=== PATIENT | male | born 1940 | race African-American/Black ===

== ENCOUNTER 2017-06-28 16:27 | Emergency (ER) | payer MEDICARE, MEDICAID ==
[~2017-06-28] VITALS: Ht 152.4 cm; Wt 114.0 kg
[~2017-06-28 16:27] MED LIST: (None)3.5 GM OP; ACTOS15 MG OR; AMOXICILLIN500 MG OR; AMOXIL500 MG OR; ATRIPLA OR; ATRIPLA PO; AUGMENTIN875 MG PO; AVODART0.5 MG OR; AZOR; AZOR OR; AZOR1 TA1 PO; AZOR1 TA2 OR; AZOR1 TAB PO; BACITRACIN1 GM EX; BACTRIM DS1 TAB PO; BACTRIM1 TAB OR; BENADRYL25 MG OR; BETIMOL0.5 % OU; CIPRO XR500 M1 OR; CIPRO XR500 MG PO; CIPROFLOXACIN250 MG PO; COREG CR20 MG OR; COREG6.25 MG OR; COREG6.25 MG PO; DARVOCET N-100100 - OR; DIABETA5 MG OR; DILAUDID 2MG2 MG/TAB PO; DILAUDID2 MG PO; DOXYCYC MONO100 MG OR; DOXYCYCL HYC100 MG PO; FAMVIR500 MG PO; FLAGYL500 MG PO; GENTAMICIN SULF5 ML OP; GLUCOVANC1 OR; GLYBURIDE5 M1 PO; GLYBURIDE5 MG OR; GLYBURIDE5 MG PO; HYDROCHLOROT25 MG PO; K-TABS10 MEQ OR; LASIX 20 MG TAB20 MG PO; LASIX 40 MG40 MG/TAB PO; LASIX40 MG OR; LEVAQUIN500 MG PO; LORTAB 5 OR; MACRODANTIN100 MG PO; MICRONASE5 MG PO; MILK OF MAG30 ML/UDC PO; NAPROSYN500 MG PO; PENICILLN VK500 MG OR; PERCOCET 5/325M1 TAB PO; POT CHLORIDE8 ME1 OR; POTASSIUM75 MG OR; PRED FORTE1 % OU; PREVACID30 M2 PO; PYRIDIUM200 MG OR; ROBITUSS20 OR; SPIRONOLACT25 MG PO; TIVICAY50 MG PO; TORADOL OR; TRAMADOL HCL50 MG OR; TRUVADA PO; ULTRAM50 M1 PO; VICODIN ES1 TAB OR; VICODIN ES1 TAB PO; VICODIN1 TAB; VICODIN1 TAB OR; VITAMIN D2 PO; ZITHROMAX250 MG OR; ZITHROMAX250 MG PO; ZOFRAN ODT4 MG PO; ZPAK OR; [UNRECOGNIZED DRUG - OTHER] PO; robitussin ac OR
[2017-06-28 17:21] LABS: HEMATOCRIT 34.9 % (39.0-50.0); HEMOGLOBIN 11.8 g/dl (14.0-18.0); IMMATURE GRANULOCYTES 0.2 % (0.0-1.0); MEAN CELL VOLUME 102.3 fL CALC (80.0-100.0); MEAN CORPUSCULAR HGB 34.6 pG CALC (26.0-32.0); MEAN CORPUSCULAR HGB CONC 33.8 g/L CALC (32.0-36.0); NEUT# 3.23 thou/uL (1.82-7.42); RED BLOOD COUNT 3.41 mill/uL (4.70-6.10); RED CELL DISTRI WIDTH 13.3 % (11.5-15.5)
[2017-06-28 17:33] LABS: ALBUMIN 3.5 g/dL (3.2-5.0); ALKALINE PHOSPHATASE 91 u/l (38-126); ANION GAP 17 (6-22 (CALC)); BILIRUBIN, TOTAL 0.6 mg/dL (0.0-1.4); BUN 24 mg/dL (8-23); BUN/CREATININE RATIO 10 (12-20 (CALC)); CARBON DIOXIDE 27 mmol/l (22-30); CHLORIDE 98 mmol/l (95-108); CREATININE 2.4 mg/dL (0.7-1.3); GFR 26 ML/MIN (>=60 (CALC)); GFR FOR AFR.AMER. 32 ML/MIN (>=60 (CALC)); LIPASE 44 u/l (23-300); POTASSIUM 3.8 mmol/l (3.5-5.1); SGOT/AST 12 u/l (19-48); SGPT/ALT 23 u/l (11-66); SODIUM 137 mmol/l (137-146); TOTAL PROTEIN 6.7 g/dL (6.3-8.2)
[2017-06-28] MEDS ORDERED: CLONIDINE0.1 MG PO (17:36)
[2017-06-28] MEDS ORDERED: GLIPIZIDE5 MG PO (17:38)
[2017-06-28] MEDS ORDERED: FUROSEMIDE40 MG PO (17:38)
[2017-06-28] MEDS ORDERED: DOCUSATE CAL240 MG PO (17:38)
[2017-06-28] MEDS ORDERED: LOSARTAN POTASS50 MG PO (17:39)
[2017-06-28] MEDS ORDERED: LABETALOL100 MG PO (17:39)
[2017-06-28] MEDS ORDERED: MUPIROCIN2 % EX (17:40)
[2017-06-28] MEDS ORDERED: MINIPRESS1 MG PO (17:41)
[2017-06-28] MEDS ORDERED: ZEMPLAR2 MCG PO (17:41)
[2017-06-28] MEDS ORDERED: SANTYL250 UNIT/G TOP (17:42)
[2017-06-28] MEDS ORDERED: TIMOLOL MAL0.5 % OU (17:43)
[2017-06-28] MEDS ORDERED: TIVICAY50 MG PO (17:43)
[2017-06-28] MEDS ORDERED: TRAMADOL HCL50 MG PO (17:43)
[2017-06-28 18:54] LABS: URINE BILIRUBIN - DIPSTICK NEGATIVE (NEGATIVE); URINE BLOOD DIPSTICK NEGATIVE (NEGATIVE); URINE COLOR YELLOW; URINE GLUCOSE - DIPSTICK 250 mg/dL (NEGATIVE); URINE KETONE NEGATIVE (NEGATIVE); URINE LEUK ESTERASE NEGATIVE (NEGATIVE); URINE NITRITE - DIPSTICK NEGATIVE (Negative); URINE PH 5.5 (4.5-8.0); URINE PROTEIN - DIPSTICK 30 mg/dL (NEG-TRACE)
[2017-06-28 18:59] LABS: URINE CLARITY CLEAR
[2017-06-28 19:16] VITALS: BP 145/72
[2017-06-28 20:53] LABS: URINE MUCUS FEW hpf (NONE-FEW); URINE SQUAMOUS EPITHELIAL CELL FEW EPI/hpf (0-FEW)
== END 2017-06-28 19:24 | disposition designated cancer center or children's hospital (05) ==
LOC: ED 16:27
PROVIDERS: Family Medicine
DX: R10.13 Epigastric pain (principal); R10.11 Right upper quadrant pain; I10 Essential (primary) hypertension; E11.9 Type 2 diabetes mellitus without complications

== ENCOUNTER 2017-10-01 12:29 | Emergency (ER) | payer MEDICARE ==
[~2017-10-01] VITALS: Ht 152.4 cm; Wt 132.5 kg
[~2017-10-01 12:29] MED LIST changes: +CLONIDINE0.1 MG PO; +DOCUSATE CAL240 MG PO; +FUROSEMIDE40 MG PO; +GLIPIZIDE5 MG PO; +LABETALOL100 MG PO; +LOSARTAN POTASS50 MG PO; +MINIPRESS1 MG PO; +MUPIROCIN2 % EX; +SANTYL250 UNIT/G TOP; +TIMOLOL MAL0.5 % OU; +TRAMADOL HCL50 MG PO; +ZEMPLAR2 MCG PO
[2017-10-01 13:19] LABS: ALBUMIN 3.8 g/dL (3.2-5.0); BILIRUBIN, TOTAL 0.7 mg/dL (0.0-1.4); CREATININE 2.2 mg/dL (0.7-1.3); POTASSIUM 3.5 mmol/l (3.5-5.1); TOTAL PROTEIN 6.9 g/dL (6.3-8.2)
[2017-10-01 13:27] LABS: HEMATOCRIT 33.4 % (39.0-50.0); HEMOGLOBIN 11.5 g/dl (14.0-18.0); IMMATURE GRANULOCYTES 0.2 % (0.0-1.0); MEAN CORPUSCULAR HGB 35.8 pG CALC (26.0-32.0); MEAN CORPUSCULAR HGB CONC 34.4 g/L CALC (32.0-36.0); NEUT# 3.49 thou/uL (1.82-7.42); RED BLOOD COUNT 3.21 mill/uL (4.70-6.10); RED CELL DISTRI WIDTH 14.2 % (11.5-15.5)
[2017-10-01] MEDS ORDERED: BACTRIM DS1 TAB PO (14:37)
[2017-10-01] MEDS ORDERED: AUGMENTIN875TAB PO (14:37)
[2017-10-01 14:54] VITALS: BP 165/72
== END 2017-10-01 15:20 | disposition home or self-care (01) ==
LOC: ED 12:29
PROVIDERS: Emergency Medicine
DX: R60.0 Localized edema (principal); M79.605 Pain in left leg; I10 Essential (primary) hypertension; E11.9 Type 2 diabetes mellitus without complications

== ENCOUNTER 2017-11-18 09:36 | Emergency (ER) | payer MEDICARE, MEDICAID ==
[~2017-11-18] VITALS: Ht 152.4 cm; Wt 121.8 kg
[~2017-11-18 09:36] MED LIST changes: +AUGMENTIN875TAB PO
[2017-11-18 10:20] LABS: HEMATOCRIT 35.9 % (39.0-50.0); HEMOGLOBIN 12.4 g/dl (14.0-18.0); IMMATURE GRANULOCYTES 0.4 % (0.0-5.0); MEAN CELL VOLUME 103.5 fL CALC (80.0-100.0); MEAN CORPUSCULAR HGB 35.7 pG CALC (26.0-32.0); MEAN CORPUSCULAR HGB CONC 34.5 g/L CALC (32.0-36.0); NEUT# 3.32 thou/uL (1.82-7.42); RED BLOOD COUNT 3.47 mill/uL (4.70-6.10); RED CELL DISTRI WIDTH 13.6 % (11.5-15.5)
[2017-11-18] MEDS ORDERED: AMMONIUM LACTATE121 TOP (10:20)
[2017-11-18] MEDS ORDERED: FUROSEMIDE80 MG PO (10:21)
[2017-11-18 10:45] LABS: CREATININE 2.2 mg/dL (0.7-1.3); POTASSIUM 4.2 mmol/l (3.5-5.1)
[2017-11-18] MEDS ORDERED: TRAMADOL HYDROC50 MG PO (11:53)
[2017-11-18 11:58] VITALS: BP 181/75
== END 2017-11-18 12:14 | disposition home or self-care (01) ==
LOC: ED 09:36
PROVIDERS: Family Medicine
DX: S39.012A Strain of muscle, fascia and tendon of lower back, initial encounter (principal); I10 Essential (primary) hypertension; E11.9 Type 2 diabetes mellitus without complications; X58.XXXA Exposure to other specified factors, initial encounter

== ENCOUNTER 2018-10-20 17:37 | Emergency (ER) | payer MEDICARE ==
[~2018-10-20] VITALS: Ht 152.4 cm; Wt 120.0 kg
[~2018-10-20 17:37] MED LIST changes: +AMMONIUM LACTATE121 TOP; +FUROSEMIDE80 MG PO; +TRAMADOL HYDROC50 MG PO
[2018-10-20] MEDS ORDERED: GLIPIZIDE5 MG PO (17:56)
[2018-10-20] MEDS ORDERED: PARICALCITOL2 MCG PO (17:58)
[2018-10-20] MEDS ORDERED: PREZCOBIX 800-11 TAB PO (18:00)
[2018-10-20] MEDS ORDERED: HYDRALAZINE10 MG PO (18:04)
[2018-10-20 18:09] LABS: HEMATOCRIT 40.8 % (39.0-50.0); HEMOGLOBIN 13.7 g/dl (14.0-18.0); IMMATURE GRANULOCYTES 0.5 % (0.0-5.0); MEAN CELL VOLUME 106.3 fL CALC (80.0-100.0); MEAN CORPUSCULAR HGB 35.7 pG CALC (26.0-32.0); MEAN CORPUSCULAR HGB CONC 33.6 g/L CALC (32.0-36.0); NEUT# 10.47 thou/uL (1.82-7.42); RED BLOOD COUNT 3.84 mill/uL (4.70-6.10); RED CELL DISTRI WIDTH 13.8 % (11.5-15.5)
[2018-10-20 18:26] LABS: ALBUMIN 4.6 g/dL (3.2-5.0); BILIRUBIN, TOTAL 0.8 mg/dL (0.0-1.4); CREATININE 3.1 mg/dL (0.7-1.3); POTASSIUM 4.3 mmol/l (3.5-5.1); TOTAL PROTEIN 8.3 g/dL (6.3-8.2)
[2018-10-20 19:53] LABS: URINE BILIRUBIN - DIPSTICK NEGATIVE (NEGATIVE); URINE BLOOD DIPSTICK NEGATIVE (NEGATIVE); URINE COLOR YELLOW; URINE GLUCOSE - DIPSTICK NEGATIVE (NEGATIVE); URINE KETONE NEGATIVE (NEGATIVE); URINE LEUK ESTERASE NEGATIVE (NEGATIVE); URINE NITRITE - DIPSTICK NEGATIVE (Negative); URINE PROTEIN - DIPSTICK 30 mg/dL (NEG-TRACE); URINE SPECIFIC GRAVITY 1.025
[2018-10-20 19:55] LABS: URINE RBC 0-2 RBC/hpf (0-5); URINE WBC 0-2 WBC/hpf (0-5)
[2018-10-20] MEDS ORDERED: ZOFRAN4 MG/TAB PO (20:07)
[2018-10-20 20:30] VITALS: BP 172/77
--- NOTE | 2018-10-22 11:12 | NUR ---
Called pt due to blood cultures growing gram positive cocci in 4/4 bottles. Pt states he has not had fever, chills, or shaking since leaving the ED. Advised pt to return to ED as soon as possible regardless due to potential serious infection in bloodstream. Pt verbalized understanding. Stated he will try to come in today, however may return tomorrow morning. Again stressed importance of being evaluated by a physician as soon as possible.
[2018-10-26] MEDS ORDERED: LIDOCAINE 5%5 % (10:00)
[2018-10-26] MEDS ORDERED: TRAMADOL HCL50 MG PO (10:45)
== END 2018-10-20 20:30 | disposition home or self-care (01) ==
LOC: ED 17:37
PROVIDERS: Family Medicine
DX: K52.9 Noninfective gastroenteritis and colitis, unspecified (principal); E11.9 Type 2 diabetes mellitus without complications; I10 Essential (primary) hypertension; Z79.84 Long term (current) use of oral hypoglycemic drugs

== ENCOUNTER 2018-10-22 12:23 | Inpatient (IN) | payer MEDICARE ==
[~2018-10-22] VITALS: Ht 172.7 cm; Wt 123.2 kg
[~2018-10-22 12:23] MED LIST changes: +HYDRALAZINE10 MG PO; +PARICALCITOL2 MCG PO; +PREZCOBIX 800-11 TAB PO; +ZOFRAN4 MG/TAB PO
--- NOTE | 2018-10-22 12:41 | NUR ---
PATIENT TO ROOM VIA WHEELCHAIR. ASSISTED ONTO STRETCHER.
[2018-10-22 13:44] LABS: IMMATURE GRANULOCYTES 0.9 % (0.0-5.0); MEAN CELL VOLUME 105.6 fL CALC (80.0-100.0); MEAN CORPUSCULAR HGB 36.2 pG CALC (26.0-32.0); MEAN CORPUSCULAR HGB CONC 34.3 g/L CALC (32.0-36.0); NEUT# 14.19 thou/uL (1.82-7.42); RED BLOOD COUNT 3.23 mill/uL (4.70-6.10); RED CELL DISTRI WIDTH 13.9 % (11.5-15.5)
[2018-10-22 14:05] LABS: HEMATOCRIT 34.1 % (39.0-50.0); HEMOGLOBIN 11.7 g/dl (14.0-18.0)
[2018-10-22 14:09] LABS: BILIRUBIN, TOTAL 0.7 mg/dL (0.0-1.4); CREATININE 3.8 mg/dL (0.7-1.3); POTASSIUM 3.8 mmol/l (3.5-5.1)
--- NOTE | 2018-10-22 14:11 | NUR ---
PT RETURNS FROM U/S, UPDATED ON PLAN OF CARE AND FINDINGS. NAD.
[2018-10-22 14:14] LABS: ALBUMIN 3.5 g/dL (3.2-5.0)
[2018-10-22 14:15] LABS: URINE BILIRUBIN - DIPSTICK NEGATIVE (NEGATIVE); URINE BLOOD DIPSTICK NEGATIVE (NEGATIVE); URINE COLOR YELLOW; URINE GLUCOSE - DIPSTICK NEGATIVE (NEGATIVE); URINE KETONE NEGATIVE (NEGATIVE); URINE LEUK ESTERASE NEGATIVE (NEGATIVE); URINE NITRITE - DIPSTICK NEGATIVE (Negative); URINE PROTEIN - DIPSTICK NEGATIVE (NEG-TRACE)
[2018-10-22] MEDS ORDERED: ZEMPLAR2 MCG PO (14:43)
[2018-10-22] MEDS ORDERED: TRAMADOL HCL50 MG PO (14:47)
--- NOTE | 2018-10-22 15:55 | NUR ---
PT RECEIVED FROM E.R VIA STRETCHER ACCOMPANIED BY NURSE. ASSISTED INTO BED. GAIT STEADY. ALERT AND ORIENTED X4. RESP EVEN AND UNLABORED. LUNGS CLEAR BILAT. ABD SOFT WITH BOWEL SOUNDS PRESENT. SKIN INTACT. +3 EDEMA NOTED TO LEFT LOWER EXT. PEDAL PULSES PALPATED BILAT. LEFT LOWER EXT IS RED WITH NO DRAINAGE PRESENT. SKIN IS DRY. PICTURE TAKEN AND PLACED ON THE CHART. LEFT LOWER EXT ELEVATED ON A PILLOW. IV SITE PATENT IN LEFT FOREARM. PT ORIENTED TO ROOM AND CALL HERNANDEZ. PT OFFERS NO COMPLAINTS. CALL HERNANDEZ WITHIN REACH.
--- NOTE | 2018-10-22 16:03 | NUR ---
REPORT CALLED TO KAROL ALDRICH TAKEN TO ROOM 289 WITHOUT INCIDENT.
--- NOTE | 2018-10-22 16:10 | NUR ---
Vancomycin consult Age: 78 yo Serum creatinine: 3.8 mg/dL Height: 68.0 Inches Weight (kg): 123.18 IBW (kg): 68.40 Dosing wt(kg): 123.18 Estimated Creatinine clearance (ml/min): 15.5 Vd (liters): 86.2 (factor used: 0.7 L/kg) Jose Alberto (hr-1): 0.017 Half life (hrs): 40.77 Vancomycin 1750 mg q 48 hrs with an expected Cpeak of 36 mcg/ml and an expected Ctrough of 16 mcg/ml
[2018-10-22 16:15] VITALS: BP 103/54
--- NOTE | 2018-10-22 17:30 | NUR ---
ACCUCHECK 66. PT ASYMPTOMATIC AND EATING HIS DINNER TRAY. LEFT LOWER EXT IS ELEVATED ON A PILLOW. IV SITE PATENT NSS AT 100CC/HR. PT OFFERS NO COMPLAINTS. CALL HERNANDEZ WITHIN REACH.
--- NOTE | 2018-10-22 18:10 | NUR ---
RESTING IN BED WATCHING T.V. ASSESSMENT UNCHANGED. IV SITE PATENT. OFFERS NO COMPLAINTS. CALL HERNANDEZ WITHIN REACH.
--- NOTE | 2018-10-22 19:17 | NUR ---
REPORT RECEIVED FROM DAY NURSE, PT IS IN HIGH FOWLERS POSITION, VISITOR AT BEDSIDE X2. DENIES ANY NEEDS AT THIS TIME.
[2018-10-22 19:20] VITALS: BP 107/52
[2018-10-22 21:32] VITALS: BP 117/59
--- NOTE | 2018-10-22 21:55 | NUR ---
PT ASSESSED, LUNG SOUNDS ARE CLEAR, ABD SOFT NON-TENDER W/ACTIVE BOWEL SOUNDS. LLE REDDENED W/2+EDEMA. NEURO'S INTACT. PT DENIES ANY NEEDS AT THIS TIME. NO S/O DISTRESS NOTED. CALL LIGHT IS AT SIDE AND PT ENCOURAGED TO CALL NEEDS ARISE.
--- NOTE | 2018-10-23 02:09 | NUR ---
PT SLEEPING W/LIGHT ON. AWOKE TO MY ENTERING ROOM, ASKED FOR MOUTH MINT/OFFERED ICE CHIPS AND SWABS/DENIED. DENIED ANY OTHER NEEDS AT THIS TIME. DENIED PAIN. CALL LIGHT AT SIDE AND PT ENCOURAGED TO CALL NEEDS ARISE.
[2018-10-23 04:36] VITALS: BP 127/64
--- NOTE | 2018-10-23 05:46 | NUR ---
PT CALLED FOR ASSISTANCE PULLING BLANKETS ON HIMSELF. ASSISTANCE PROVIDED, DENIES ANY OTHER NEEDS. CPAP ON AT THIS TIME. NO S/O DISTRESS NOTED.
[2018-10-23 08:02] LABS: HEMATOCRIT 32.2 % (39.0-50.0); IMMATURE GRANULOCYTES 0.7 % (0.0-5.0); MEAN CELL VOLUME 105.2 fL CALC (80.0-100.0); MEAN CORPUSCULAR HGB 35.9 pG CALC (26.0-32.0); MEAN CORPUSCULAR HGB CONC 34.2 g/L CALC (32.0-36.0); NEUT# 9.52 thou/uL (1.82-7.42); RED BLOOD COUNT 3.06 mill/uL (4.70-6.10); RED CELL DISTRI WIDTH 14.4 % (11.5-15.5)
[2018-10-23 08:03] LABS: CREATININE 3.7 mg/dL (0.7-1.3)
[2018-10-23 08:15] VITALS: BP 147/67
--- NOTE | 2018-10-23 08:15 | NUR ---
Awake eating breakfast on side of bed, iv intact at 100cc/he to 2guage in left forearm, denies any discomforts or pain.
--- NOTE | 2018-10-23 11:55 | NUR ---
and TANIKA making rounds, awaiting orders.
[2018-10-23 15:20] VITALS: BP 152/67
--- NOTE | 2018-10-23 15:30 | NUR ---
May take some home meds per MD order, IV remains intact without redness or edema.
[2018-10-23 19:14] VITALS: BP 140/63
--- NOTE | 2018-10-23 22:10 | NUR ---
PT ON PHONE, ASKED ME TO RETURN LATER. WILL RETURN IN A FIEW MINUTES TO ADMINISTER MEDICATIONS ORDERED.
--- NOTE | 2018-10-23 22:44 | NUR ---
PT MEDICATED ORDERS PROVIDE AND W/HOME MEDICATIONS ORDERED IN MAY. LUNG SOUNDS ARE CLEAR/DIM. ABD DIST/SOFT NON-TENDER. PT REPORTS LAST STOOL TWO DAYS AGO NORMAL TIMING FOR HIM. REPORTS URINATING FREQUENTLY. BLE EDEMATOUS, RLE 1+EDEMA, LLE 2+EDEMA AND REDDENED. PT ASSISTED W/PO FLUIDS, DENIES ANY OTHER NEEDS, CALL LIGHT AND URINAL AT SIDE.
--- NOTE | 2018-10-24 02:00 | NUR ---
PT CALLED FOR ASSISTANCE USING URINAL AT BEDSIDE AND GETTING BACK INTO BED. PT APPEARS TO NOT NEED ASSISTANCE, BUT CALLS FOR STANDBY ASSISTANCE EACH TIME HE MOVES TO SIDE OF BED. NO S/O DISTRESS NOTED.
--- NOTE | 2018-10-24 02:52 | NUR ---
IV FLUIDS REPLENISHED AT THIS TIME. PT IS SITTING ON SIDE OF THE BED EATING APPLESAUCE. MEDICATIONS MEDICAL ISSUES DISCUSSED. HOUSEKEEPING IN ROOM AT THIS TIME. PT DENIES ANY OTHER NEEDS, CALL LIGHT W/IN REACH AND HE HAS BEEN ENCOURAGED TO CALL ANY NEEDS ARISE.
[2018-10-24 04:02] VITALS: BP 131/60
[2018-10-24 05:49] LABS: HEMATOCRIT 31.4 % (39.0-50.0); HEMOGLOBIN 10.3 g/dl (14.0-18.0); IMMATURE GRANULOCYTES 0.6 % (0.0-5.0); MEAN CELL VOLUME 107.5 fL CALC (80.0-100.0); MEAN CORPUSCULAR HGB 35.3 pG CALC (26.0-32.0); MEAN CORPUSCULAR HGB CONC 32.8 g/L CALC (32.0-36.0); NEUT# 5.95 thou/uL (1.82-7.42); RED BLOOD COUNT 2.92 mill/uL (4.70-6.10); RED CELL DISTRI WIDTH 14.3 % (11.5-15.5)
[2018-10-24 06:02] LABS: CREATININE 3.2 mg/dL (0.7-1.3); POTASSIUM 4.1 mmol/l (3.5-5.1)
--- NOTE | 2018-10-24 07:45 | NUR ---
PT AWAKE SITTING IN BED. RESP EVEN AND UNLABORED. LUNGS CLEAR BILAT. ABD SOFT AND NONDISTENDED WITH BOWEL SOUNDS PRESENT. PT HAS +2 LEFT LOWER EXT EDEMA NOTED. PEDAL PULSES PALPATED BILAT. LEFT LOWER EXT IS RED AND SKIN IS INTACT BUT DRY. IV SITE PATENT IN LEFT FOREARM NSS AT 100CC/HR. PT OFFERS NO COMPLAINTS. LEFT LOWER EXT IS ELEVATED ON A PILLOW. FREQUENT ROUNDS MADE. CALL HERNANDEZ WITHIN REACH.
[2018-10-24 07:58] VITALS: BP 160/75
[2018-10-24 09:44] VITALS: BP 160/75
--- NOTE | 2018-10-24 10:20 | NUR ---
SITTING AT EDGE OF THE BED. IV SITE PATENT. RESP EVEN AND UNLABORED. OFFERS NO COMPLAINTS. CALL HERNANDEZ WITHIN REACH.
[2018-10-24] MEDS ORDERED: LASIX40 MG PO (11:27)
[2018-10-24] MEDS ORDERED: ROCEPHIN1 G1 IV ×2 (11:29→11:30)
--- NOTE | 2018-10-24 14:00 | NUR ---
REVIEWED ALL D/C INSTRUCTIONS WITH PT. PT AWARE OF NEW DISCHARGE MED ORDERS AND TO COME TO LAB ON I WEEK FOR LABS. PT AWARE TO CALL FOR FOLLOW UP APPT. IV SITE D/RAYMUNDO AFTER PT RECEIVED HIS IV ROCEPHIN 2GM IV. IV CATH INTACT AFTER D/C. PT INFORMED HE IS TO CALL IN A.M OUT PT IV THERAPY IN REGARDS TO SEE WHAT TIME HE SHOULD COME TO HOSP TO RECEIVE HIS IV ROCEPHIN. FAXED FACE SHEET TO IV THERAPY. PT HAS NO QUESTIONS REGARDING D/C INSTRUCTION. ALL OF PTS HOME MEDS RETURNED TO PT. 4 PILL BOTTLES AND EYE GTTS. PT IS IN STABLE CONDITION AND OFFERS NO COMPLAINTS.
--- NOTE | 2018-10-24 14:45 | NUR ---
PHARMACY BROUGHT TO PTS ROOM THE REST OF PTS HOME MEDS. 8 BOTTLES OF HOME MEDS RETURNED TO PT INCLUDING ALL OF HIS HIV MEDS. PT DID SIGN ON BOTTOM OF BELINGING SHEET THAT HE DID RECEIVE BACK ALL HIS HOME MEDS.
--- NOTE | 2018-10-24 14:56 | NUR ---
PT DISCHARGED VIA WHEELCHAIR WITH ALL HIS HOME MEDS AND BELONGINGS. PT DISCHARGED IN STABLE CONDITION. ACCOMPANIED BY FAMILY MEMBER.
[2018-10-26] MEDS ORDERED: LIDOCAINE 5%5 % (10:00)
[2018-10-26] MEDS ORDERED: TRAMADOL HCL50 MG PO (10:45)
== END 2018-10-24 14:55 | disposition home or self-care (01) | DRG 872 ==
LOC: ED 12:23 → ED-I 14:38 → ED 14:54 → MS2 14:55
PROVIDERS: Emergency Medicine; Nurse Practitioner Family; ADMIT Internal Medicine; ATTEND Internal Medicine
DX: R78.81 Bacteremia (principal); L03.116 Cellulitis of left lower limb; N18.4 Chronic kidney disease, stage 4 (severe); N17.9 Acute kidney failure, unspecified; E11.22 Type 2 diabetes mellitus with diabetic chronic kidney disease; I12.9 Hypertensive chronic kidney disease with stage 1 through stage 4 chronic kidney disease, or unspecified chronic kidney disease; Z21 Asymptomatic human immunodeficiency virus [HIV] infection status; B95.4 Other streptococcus as the cause of diseases classified elsewhere; Z79.84 Long term (current) use of oral hypoglycemic drugs; Z79.899 Other long term (current) drug therapy
CPT/HCPCS: J3370

== ENCOUNTER 2019-03-04 06:18 | Inpatient (IN) | payer MEDICARE ==
[~2019-03-04] VITALS: Ht 172.7 cm; Wt 117.7 kg
[2019-03-04] VITALS (9 sets, daily range): BP systolic 126–177; BP diastolic 59–78
[~2019-03-04 06:18] MED LIST changes: +LASIX40 MG PO; +LIDOCAINE 5%5 %; +ROCEPHIN1 G1 IV
[2019-03-04] MEDS ORDERED: PREZCOBIX 800-11 TAB PO (06:42)
[2019-03-04 07:43] LABS: URINE BILIRUBIN - DIPSTICK NEGATIVE (NEGATIVE); URINE BLOOD DIPSTICK NEGATIVE (NEGATIVE); URINE COLOR YELLOW; URINE GLUCOSE - DIPSTICK 100 mg/dL (NEGATIVE); URINE KETONE NEGATIVE (NEGATIVE); URINE LEUK ESTERASE NEGATIVE (NEGATIVE); URINE NITRITE - DIPSTICK NEGATIVE (Negative); URINE PROTEIN - DIPSTICK 30 mg/dL (NEG-TRACE)
[2019-03-04 07:43] LABS: HEMATOCRIT 34.4 % (39.0-50.0); HEMOGLOBIN 11.7 g/dl (14.0-18.0); IMMATURE GRANULOCYTES 0.5 % (0.0-5.0); MEAN CELL VOLUME 103.9 fL CALC (80.0-100.0); MEAN CORPUSCULAR HGB 35.3 pG CALC (26.0-32.0); NEUT# 4.76 thou/uL (1.82-7.42); RED BLOOD COUNT 3.31 mill/uL (4.70-6.10); RED CELL DISTRI WIDTH 13.1 % (11.5-15.5)
[2019-03-04 07:47] LABS: BARBITURATES NEGATIVE (NEGATIVE); COCAINE NEGATIVE (NEGATIVE); METHADONE NEGATIVE (NEGATIVE); OXCYCODONE NEGATIVE (NEGATIVE); TETRAHYDROCANNABIONOL NEGATIVE (NEGATIVE); TRICYLIC ANTIDEPRESSANTS NEGATIVE (NEGATIVE)
[2019-03-04 07:57] LABS: URINE SQUAMOUS EPITHELIAL CELL RARE EPI/hpf (0-FEW)
[2019-03-04 07:58] LABS: ALBUMIN 3.9 g/dL (3.2-5.0); ALKALINE PHOSPHATASE 83 u/l (38-126); AMYLASE 40 u/l (30-110); ANION GAP 15 (6-22 (CALC)); BILIRUBIN, TOTAL 0.8 mg/dL (0.0-1.4); BUN 37 mg/dL (8-23); BUN/CREATININE RATIO 13 (12-20 (CALC)); CARBON DIOXIDE 29 mmol/l (22-30); CHLORIDE 97 mmol/l (95-108); CREATININE 2.8 mg/dL (0.7-1.3); GFR 22 ML/MIN (>=60 (CALC)); GFR FOR AFR.AMER. 27 ML/MIN (>=60 (CALC)); LIPASE 48 u/l (23-300); POTASSIUM 4.4 mmol/l (3.5-5.1); SGOT/AST 13 u/l (19-48); SODIUM 136 mmol/l (137-146); TOTAL PROTEIN 7.2 g/dL (6.3-8.2)
[2019-03-04 08:10] LABS: MYOGLOBIN 62 ng/mL (0 - 121)
[2019-03-04 22:17] LABS: HEMATOCRIT 36.8 % (39.0-50.0); HEMOGLOBIN 12.3 g/dl (14.0-18.0); IMMATURE GRANULOCYTES 0.4 % (0.0-5.0); MEAN CELL VOLUME 106.1 fL CALC (80.0-100.0); MEAN CORPUSCULAR HGB 35.4 pG CALC (26.0-32.0); MEAN CORPUSCULAR HGB CONC 33.4 g/L CALC (32.0-36.0); NEUT# 6.88 thou/uL (1.82-7.42); RED BLOOD COUNT 3.47 mill/uL (4.70-6.10); RED CELL DISTRI WIDTH 13.9 % (11.5-15.5)
[2019-03-04 22:37] LABS: ALBUMIN 3.7 g/dL (3.2-5.0); ALKALINE PHOSPHATASE 76 u/l (38-126); ANION GAP 13 (6-22 (CALC)); BILIRUBIN, TOTAL 0.8 mg/dL (0.0-1.4); BUN 33 mg/dL (8-23); BUN/CREATININE RATIO 13 (12-20 (CALC)); C-REACTIVE PROTEIN < 0.5 mg/dL (0-0.9); CALCULATED LDLCHOLESTEROL 112 mg/dL (62-129 (CALC)); CARBON DIOXIDE 28 mmol/l (22-30); CHLORIDE 101 mmol/l (95-108); CHOLESTEROL HDL RATIO 3.4 (<4.4 (CALC)); CREATININE 2.6 mg/dL (0.7-1.3); GFR 24 ML/MIN (>=60 (CALC)); GFR FOR AFR.AMER. 29 ML/MIN (>=60 (CALC)); HDL CHOLESTEROL 53 mg/dL (>=40); POTASSIUM 4.2 mmol/l (3.5-5.1); SGOT/AST 14 u/l (19-48); SODIUM 137 mmol/l (137-146); TOTAL CHOLESTEROL 179 mg/dl (0-199); TOTAL PROTEIN 6.8 g/dL (6.3-8.2); TOTAL TRIGLYCERIDES 72 mg/dl (30-149); VLDL CHOLESTROL 14 mg/dl (0-38 (CALC))
[2019-03-05] VITALS (11 sets, daily range): BP systolic 121–206; BP diastolic 53–90
[2019-03-05 05:38] LABS: HEMATOCRIT 33.3 % (39.0-50.0); HEMOGLOBIN 11.2 g/dl (14.0-18.0); IMMATURE GRANULOCYTES 0.3 % (0.0-5.0); MEAN CELL VOLUME 106.1 fL CALC (80.0-100.0); MEAN CORPUSCULAR HGB 35.7 pG CALC (26.0-32.0); MEAN CORPUSCULAR HGB CONC 33.6 g/L CALC (32.0-36.0); NEUT# 4.51 thou/uL (1.82-7.42); RED BLOOD COUNT 3.14 mill/uL (4.70-6.10); RED CELL DISTRI WIDTH 13.8 % (11.5-15.5)
[2019-03-05 06:15] LABS: CREATININE 2.7 mg/dL (0.7-1.3)
== END 2019-03-05 15:45 | disposition short-term general hospital (02) | DRG 66 ==
LOC: ED 06:18 → ED-I 10:20 → ED 10:43 → MS2 10:44 → ICU 20:56
PROVIDERS: Emergency Medicine; Nurse Practitioner Family; ADMIT Internal Medicine; ATTEND Internal Medicine
DX: I63.89 Other cerebral infarction (principal); R42 Dizziness and giddiness; H55.00 Unspecified nystagmus; R27.0 Ataxia, unspecified; I16.0 Hypertensive urgency; I12.9 Hypertensive chronic kidney disease with stage 1 through stage 4 chronic kidney disease, or unspecified chronic kidney disease; E11.22 Type 2 diabetes mellitus with diabetic chronic kidney disease; N18.3 Chronic kidney disease, stage 3 (moderate); Z79.84 Long term (current) use of oral hypoglycemic drugs
CPT/HCPCS: J1650; S0164

== ENCOUNTER 2020-11-21 06:54 | Day surgery (SDC) | payer MEDICARE, MEDICAID ==
[~2020-11-21 06:54] MED LIST changes: +AMLODIPINE BESYL5 MG PO; +B12-ACTIVE1 MG PO; +ELIQUIS2.5 MG PO; +FINASTERIDE5 MG PO; +FUROSEMIDE20 MG PO; +GABAPENTIN300 M2 PO; +HYDROCO/APAP1 T10 PO; +LIPITOR20 M1 PO; +OXYCODONE HYDROC5 M1 PO
[2020-11-21 09:31] VITALS: BP 157/69
[2020-11-21] MEDS ORDERED: PERCOCET 10/31 COMBO PO ×2 (10:01→10:02)
[2020-12-11] MEDS ORDERED: PERCOCET 10/31 COMBO PO ×2 (13:29→13:31)
[2021-01-10] MEDS ORDERED: PERCOCET 10/31 COMBO PO (12:51)
[2021-02-05] MEDS ORDERED: PERCOCET 10/31 COMBO PO (13:21)
[2021-02-05] MEDS ORDERED: MEDDOSEPAK PO (13:22)
[2021-03-05] MEDS ORDERED: PERCOCET 10/31 COMBO PO ×2 (13:28→13:29)
== END 2020-11-21 10:35 | disposition home or self-care (01) ==
LOC: ORM 06:54
PROVIDERS: ATTEND Anesthesiology Pain Medicine
DX: M54.5 Low back pain (principal); M47.816 Spondylosis without myelopathy or radiculopathy, lumbar region

== ENCOUNTER 2020-11-27 13:20 | Outpatient (REF) | payer MEDICARE, MEDICAID ==
[~2020-11-27 13:20] MED LIST changes: +PERCOCET 10/31 COMBO PO
[2020-11-27 13:49] VITALS: BP 131/66
--- NOTE | 2020-11-27 15:28 | NUR ---
Patient is here for Retacrit injection Hold Retacrit dose of 10,000 units on 11/27/20,Previous Retacrit dose 14,000 units of Retacrit on 09/28/20 Current Hgb 10.5g/dl on date:11/27/20 Previous Hgb 10.8g/dl on date:10/26/20 Previous Iron study on date: 10/26/20 IRON:72ug/dl TIBC:174ug/dl %SAT:41% TRANSFERRIN:133mg/dL FERRITIN: 273ng/ml Next Iron study on: 01/26/21 Next Hgb due on: 12/25/20 Pt will come back for next dose of Retacrit on 12/25/20 BP:131/66 mmHg
== END 2020-11-27 14:23 | disposition home or self-care (01) ==
LOC: INF 13:20
PROVIDERS: ATTEND Internal Medicine Nephrology
DX: N18.4 Chronic kidney disease, stage 4 (severe) (principal); D63.1 Anemia in chronic kidney disease

== ENCOUNTER 2021-01-02 06:51 | Day surgery (SDC) | payer MEDICARE, MEDICAID ==
[~2021-01-02] VITALS: Ht 172.7 cm; Wt 119.7 kg
[2021-01-02] MEDS ORDERED: VITAMIN D350000 UNIT PO (08:06)
[2021-01-02 12:23] VITALS: BP 193/93
== END 2021-01-02 11:05 | disposition home or self-care (01) ==
LOC: ORM 06:51
PROVIDERS: ATTEND Anesthesiology Pain Medicine
DX: M48.061 Spinal stenosis, lumbar region without neurogenic claudication (principal); M51.26 Other intervertebral disc displacement, lumbar region
CPT/HCPCS: Q9967

== ENCOUNTER 2022-01-28 12:42 | Emergency (ER) | payer MEDICARE, MEDICAID ==
[~2022-01-28] VITALS: Ht 172.7 cm; Wt 110.0 kg
[~2022-01-28 12:42] MED LIST changes: +MEDDOSEPAK PO; +VITAMIN D350000 UNIT PO
[2022-01-28 12:52] VITALS: BP 106/54
[2022-01-28 13:01] VITALS: BP 103/53
[2022-01-28 14:04] VITALS: BP 116/58
[2022-01-28 14:25] VITALS: BP 116/58
== END 2022-01-28 14:26 | disposition left against medical advice (07) ==
LOC: ED 12:42
DX: S43.401A Unspecified sprain of right shoulder joint, initial encounter (principal); R07.81 Pleurodynia; M54.2 Cervicalgia; I12.9 Hypertensive chronic kidney disease with stage 1 through stage 4 chronic kidney disease, or unspecified chronic kidney disease; E11.22 Type 2 diabetes mellitus with diabetic chronic kidney disease; N18.30 Chronic kidney disease, stage 3 unspecified; I69.954 Hemiplegia and hemiparesis following unspecified cerebrovascular disease affecting left non-dominant side; W18.39XA Other fall on same level, initial encounter; Y92.002 Bathroom of unspecified non-institutional (private) residence as the place of occurrence of the external cause; Z21 Asymptomatic human immunodeficiency virus [HIV] infection status; Z53.29 Procedure and treatment not carried out because of patient's decision for other reasons

== ENCOUNTER 2022-02-14 11:04 | Inpatient (IN) | payer MEDICARE, MEDICAID ==
[2022-02-14] VITALS (16 sets, daily range): BP systolic 113–179; BP diastolic 49–87
[~2022-02-14] VITALS: Ht 172.7 cm; Wt 97.0 kg
[2022-02-14 11:54] LABS: HEMATOCRIT 31.7 % (39.0-50.0); HEMOGLOBIN 10.3 g/dl (14.0-18.0); IMMATURE GRANULOCYTES 0.3 % (0.0-5.0); MEAN CELL VOLUME 99.7 fL CALC (80.0-100.0); MEAN CORPUSCULAR HGB 32.4 pG CALC (26.0-32.0); MEAN CORPUSCULAR HGB CONC 32.5 g/dL CAL (32.0-36.0); NEUT# 6.36 thou/uL (1.82-7.42); RED BLOOD COUNT 3.18 mill/uL (4.70-6.10); RED CELL DISTRI WIDTH 15.1 % (11.5-15.5)
[2022-02-14 12:12] LABS: ALBUMIN 3.4 g/dL (3.2-5.0); BILIRUBIN, TOTAL 0.7 mg/dL (0.0-1.4); TOTAL PROTEIN 6.4 g/dL (6.3-8.2)
[2022-02-14 12:14] LABS: CREATININE 5.8 mg/dL (0.7-1.3); POTASSIUM 5.2 mmol/l (3.5-5.1)
[2022-02-14 15:57] LABS: URINE BILIRUBIN - DIPSTICK NEGATIVE (NEGATIVE); URINE BLOOD DIPSTICK TRACE-INTACT (NEGATIVE); URINE COLOR YELLOW; URINE GLUCOSE - DIPSTICK 100 mg/dL (NEGATIVE); URINE KETONE NEGATIVE (NEGATIVE); URINE LEUK ESTERASE NEGATIVE (NEGATIVE); URINE PROTEIN - DIPSTICK 30 mg/dL (NEG-TRACE); URINE SPECIFIC GRAVITY 1.015
[2022-02-14 16:00] LABS: URINE NITRITE - DIPSTICK NEGATIVE (Negative)
[2022-02-14 16:09] LABS: URINE RBC 0-2 RBC/hpf (0-5)
[2022-02-15 04:16] VITALS: BP 189/78
[2022-02-15 05:40] LABS: HEMATOCRIT 31.1 % (39.0-50.0); HEMOGLOBIN 10.3 g/dl (14.0-18.0); MEAN CELL VOLUME 98.4 fL CALC (80.0-100.0); MEAN CORPUSCULAR HGB 32.6 pG CALC (26.0-32.0); MEAN CORPUSCULAR HGB CONC 33.1 g/dL CAL (32.0-36.0); RED BLOOD COUNT 3.16 mill/uL (4.70-6.10); RED CELL DISTRI WIDTH 14.9 % (11.5-15.5)
[2022-02-15 05:50] LABS: CREATININE 4.9 mg/dL (0.7-1.3); MAGNESIUM 1.8 mg/dL (1.6-2.3); POTASSIUM 4.9 mmol/l (3.5-5.1)
[2022-02-15 07:06] VITALS: BP 193/63
[2022-02-15 07:07] VITALS: BP 193/63
[2022-02-15 15:16] VITALS: BP 173/72
[2022-02-15 19:08] VITALS: BP 144/86
[2022-02-16] VITALS (9 sets, daily range): BP systolic 150–193; BP diastolic 70–85
[2022-02-16 05:22] LABS: HEMATOCRIT 33.9 % (39.0-50.0); HEMOGLOBIN 11.3 g/dl (14.0-18.0); MEAN CELL VOLUME 99.1 fL CALC (80.0-100.0); MEAN CORPUSCULAR HGB CONC 33.3 g/dL CAL (32.0-36.0); RED BLOOD COUNT 3.42 mill/uL (4.70-6.10); RED CELL DISTRI WIDTH 15.2 % (11.5-15.5)
[2022-02-16 05:56] LABS: ALBUMIN 3.3 g/dL (3.2-5.0); BILIRUBIN, TOTAL 0.6 mg/dL (0.0-1.4); CREATININE 4.3 mg/dL (0.7-1.3); MAGNESIUM 1.9 mg/dL (1.6-2.3); TOTAL PROTEIN 6.4 g/dL (6.3-8.2)
[2022-02-17] VITALS (7 sets, daily range): BP systolic 151–173; BP diastolic 61–77
[2022-02-17 07:49] LABS: HEMATOCRIT 33.1 % (39.0-50.0); HEMOGLOBIN 10.7 g/dl (14.0-18.0); MEAN CELL VOLUME 100.3 fL CALC (80.0-100.0); MEAN CORPUSCULAR HGB 32.4 pG CALC (26.0-32.0); MEAN CORPUSCULAR HGB CONC 32.3 g/dL CAL (32.0-36.0); RED BLOOD COUNT 3.3 mill/uL (4.70-6.10); RED CELL DISTRI WIDTH 15.6 % (11.5-15.5)
[2022-02-17 07:57] LABS: CREATININE 4.2 mg/dL (0.7-1.3); MAGNESIUM 2.2 mg/dL (1.6-2.3)
[2022-02-17 07:59] LABS: POTASSIUM 5.4 mmol/l (3.5-5.1)
[2022-02-18 00:17] VITALS: BP 153/51
[2022-02-18 05:02] VITALS: BP 155/47
[2022-02-18 06:30] VITALS: BP 152/59
[2022-02-18 07:13] LABS: ALBUMIN 3.4 g/dL (3.2-5.0); CREATININE 4.5 mg/dL (0.7-1.3); POTASSIUM 5.1 mmol/l (3.5-5.1)
[2022-02-18 09:49] VITALS: BP 129/59
[2022-02-18 14:19] VITALS: BP 153/62
[2022-02-18 18:52] VITALS: BP 143/60
[2022-02-19] VITALS (9 sets, daily range): BP systolic 145–165; BP diastolic 62–81
[2022-02-19 07:45] LABS: CREATININE 4.2 mg/dL (0.7-1.3)
[2022-02-20] VITALS (10 sets, daily range): BP systolic 107–171; BP diastolic 44–78
[2022-02-20 05:56] LABS: ALBUMIN 3.1 g/dL (3.2-5.0); CREATININE 4.2 mg/dL (0.7-1.3)
[2022-02-20 06:04] LABS: POTASSIUM 5.3 mmol/l (3.5-5.1)
[2022-02-20 11:34] LABS: URINE BILIRUBIN - DIPSTICK NEGATIVE (NEGATIVE); URINE BLOOD DIPSTICK NEGATIVE (NEGATIVE); URINE COLOR YELLOW; URINE GLUCOSE - DIPSTICK 100 mg/dL (NEGATIVE); URINE KETONE NEGATIVE (NEGATIVE); URINE LEUK ESTERASE NEGATIVE (NEGATIVE); URINE PH 5.5 (4.5-8.0); URINE PROTEIN - DIPSTICK 30 mg/dL (NEG-TRACE); URINE UROBILINOGEN - DIPSTICK 0.2 E.U./dL (0.2)
[2022-02-20 11:37] LABS: URINE NITRITE - DIPSTICK NEGATIVE (Negative)
[2022-02-20 12:13] LABS: URINE EPITHELIAL CELLS MODERATE EPI/hpf (0-FEW); URINE MUCUS MODERATE hpf (NONE-FEW)
[2022-02-20 13:30] LABS: URINE BILIRUBIN - DIPSTICK NEGATIVE (NEGATIVE); URINE BLOOD DIPSTICK NEGATIVE (NEGATIVE); URINE COLOR YELLOW; URINE GLUCOSE - DIPSTICK 100 mg/dL (NEGATIVE); URINE KETONE NEGATIVE (NEGATIVE); URINE LEUK ESTERASE NEGATIVE (Negative); URINE NITRITE - DIPSTICK NEGATIVE (Negative); URINE PROTEIN - DIPSTICK 30 mg/dL (NEG-TRACE); URINE UROBILINOGEN - DIPSTICK 0.2 E.U./dL (0.2)
[2022-02-20 13:32] LABS: URINE CLARITY SL CLOUDY; URINE EPITHELIAL CELLS FEW EPI/hpf (0-FEW); URINE MUCUS MODERATE hpf (NONE-FEW)
[2022-02-21] VITALS (8 sets, daily range): BP systolic 106–168; BP diastolic 41–71
[2022-02-21 06:29] LABS: ALBUMIN 2.7 g/dL (3.2-5.0); CREATININE 3.9 mg/dL (0.7-1.3)
[2022-02-21 06:32] LABS: POTASSIUM 5.3 mmol/l (3.5-5.1)
[2022-02-21] MEDS ORDERED: LORTAB 5/3255 MG PO (12:24)
[2022-02-22] VITALS (8 sets, daily range): BP systolic 118–148; BP diastolic 59–75
[2022-02-22 06:21] LABS: ALBUMIN 2.7 g/dL (3.2-5.0); CREATININE 4.3 mg/dL (0.7-1.3)
[2022-02-22 06:22] LABS: POTASSIUM 5.9 mmol/l (3.5-5.1)
[2022-02-23 04:00] VITALS: BP 156/70
[2022-02-23 04:28] VITALS: BP 156/70
[2022-02-23 05:20] LABS: HEMATOCRIT 26.2 % (39.0-50.0); HEMOGLOBIN 8.5 g/dl (14.0-18.0); IMMATURE GRANULOCYTES 0.5 % (0.0-5.0); MEAN CELL VOLUME 101.2 fL CALC (80.0-100.0); MEAN CORPUSCULAR HGB 32.8 pG CALC (26.0-32.0); MEAN CORPUSCULAR HGB CONC 32.4 g/dL CAL (32.0-36.0); NEUT# 3.44 thou/uL (1.82-7.42); RED BLOOD COUNT 2.59 mill/uL (4.70-6.10); RED CELL DISTRI WIDTH 16.2 % (11.5-15.5)
[2022-02-23 05:38] LABS: MAGNESIUM 2.4 mg/dL (1.6-2.3)
[2022-02-23 05:42] LABS: POTASSIUM 5.3 mmol/l (3.5-5.1)
[2022-02-23 07:38] VITALS: BP 124/55
[2022-02-23 08:56] VITALS: BP 131/54
[2022-02-23 14:47] VITALS: BP 129/75
[2022-02-23 23:44] VITALS: BP 124/61
[2022-02-24 04:17] VITALS: BP 152/74
[2022-02-24 05:51] LABS: ALBUMIN 3.1 g/dL (3.2-5.0); CREATININE 3.8 mg/dL (0.7-1.3); POTASSIUM 4.9 mmol/l (3.5-5.1)
[2022-02-24 06:20] VITALS: BP 146/71
[2022-02-24 10:08] VITALS: BP 142/56
[2022-02-24 18:59] VITALS: BP 120/61
[2022-02-25 00:10] VITALS: BP 155/69
[2022-02-25 04:46] VITALS: BP 123/63
[2022-02-25 05:57] LABS: HEMATOCRIT 28.6 % (39.0-50.0); HEMOGLOBIN 9.2 g/dl (14.0-18.0); MEAN CELL VOLUME 101.1 fL CALC (80.0-100.0); MEAN CORPUSCULAR HGB 32.5 pG CALC (26.0-32.0); MEAN CORPUSCULAR HGB CONC 32.2 g/dL CAL (32.0-36.0); RED BLOOD COUNT 2.83 mill/uL (4.70-6.10); RED CELL DISTRI WIDTH 16.2 % (11.5-15.5)
[2022-02-25 06:07] LABS: CREATININE 4.3 mg/dL (0.7-1.3); MAGNESIUM 2.3 mg/dL (1.6-2.3); POTASSIUM 4.8 mmol/l (3.5-5.1)
[2022-02-25 06:47] VITALS: BP 129/67
[2022-02-25 10:30] VITALS: BP 127/57
[2022-02-25 15:53] VITALS: BP 104/43
[2022-02-25 19:00] VITALS: BP 129/63
[2022-02-26] VITALS: BP 155/80
[2022-02-26 04:00] VITALS: BP 150/70
[2022-02-26 06:21] LABS: ALBUMIN 2.9 g/dL (3.2-5.0); CREATININE 4.1 mg/dL (0.7-1.3); POTASSIUM 4.1 mmol/l (3.5-5.1)
[2022-02-26 06:49] VITALS: BP 130/63
[2022-02-26 10:49] VITALS: BP 111/54
[2022-02-26 17:10] VITALS: BP 127/63
[2022-02-26 19:27] VITALS: BP 98/50
[2022-02-27 00:18] VITALS: BP 127/54
[2022-02-27 04:57] VITALS: BP 145/64
[2022-02-27 06:24] VITALS: BP 126/54
[2022-02-27 10:16] VITALS: BP 143/71
[2022-02-27 15:34] VITALS: BP 137/72
[2022-02-27 18:42] LABS: URINE BILIRUBIN - DIPSTICK NEGATIVE (NEGATIVE); URINE BLOOD DIPSTICK NEGATIVE (NEGATIVE); URINE CLARITY CLEAR; URINE COLOR YELLOW; URINE GLUCOSE - DIPSTICK NEGATIVE (NEGATIVE); URINE KETONE NEGATIVE (NEGATIVE); URINE LEUK ESTERASE NEGATIVE (Negative); URINE NITRITE - DIPSTICK NEGATIVE (Negative); URINE PROTEIN - DIPSTICK TRACE mg/dL (NEG-TRACE); URINE UROBILINOGEN - DIPSTICK 0.2 E.U./dL (0.2)
[2022-02-27 20:13] VITALS: BP 149/69
[2022-02-28 00:04] VITALS: BP 128/52
[2022-02-28 04:19] VITALS: BP 132/62
[2022-02-28 06:39] LABS: ALBUMIN 2.6 g/dL (3.2-5.0); CREATININE 3.9 mg/dL (0.7-1.3); POTASSIUM 4.3 mmol/l (3.5-5.1)
[2022-02-28 07:16] VITALS: BP 129/55
[2022-02-28 07:19] VITALS: BP 129/55
[2022-02-28 09:54] VITALS: BP 143/58
== END 2022-02-28 15:10 | DRG 683 ==
LOC: ED 11:04 → ED-I 16:05 → ED 16:28 → MS2 16:29
PROVIDERS: Family Medicine; Internal Medicine; Internal Medicine Nephrology; ADMIT Internal Medicine; ATTEND Internal Medicine
PROC: 0T9B70Z Drainage of Bladder with Drainage Device, Via Natural or Artificial Opening (ICD-10-PCS; principal; 2022-02-27)
DX: N17.9 Acute kidney failure, unspecified (principal); E87.1 Hypo-osmolality and hyponatremia; E87.20 Acidosis, unspecified; I12.0 Hypertensive chronic kidney disease with stage 5 chronic kidney disease or end stage renal disease; N18.5 Chronic kidney disease, stage 5; E11.22 Type 2 diabetes mellitus with diabetic chronic kidney disease; K56.41 Fecal impaction; D63.1 Anemia in chronic kidney disease; N25.81 Secondary hyperparathyroidism of renal origin; I48.91 Unspecified atrial fibrillation; E78.5 Hyperlipidemia, unspecified; R53.1 Weakness; E86.9 Volume depletion, unspecified; E87.5 Hyperkalemia; L89.151 Pressure ulcer of sacral region, stage 1; M48.061 Spinal stenosis, lumbar region without neurogenic claudication; M16.11 Unilateral primary osteoarthritis, right hip; R07.81 Pleurodynia; N40.0 Benign prostatic hyperplasia without lower urinary tract symptoms; S91.115A Laceration without foreign body of left lesser toe(s) without damage to nail, initial encounter; S91.214A Laceration without foreign body of right lesser toe(s) with damage to nail, initial encounter; W19.XXXA Unspecified fall, initial encounter; Z91.81 History of falling; Z86.73 Personal history of transient ischemic attack (TIA), and cerebral infarction without residual deficits; Z79.01 Long term (current) use of anticoagulants; Z20.822 Contact with and (suspected) exposure to COVID-19
CPT/HCPCS: Q5106 EC

== ENCOUNTER 2022-04-11 12:30 | Observation (INO) | payer MEDICARE, MEDICAID ==
[2022-04-11] VITALS (23 sets, daily range): BP systolic 70–154; BP diastolic 26–92
[~2022-04-11] VITALS: Ht 172.7 cm; Wt 84.9 kg
[~2022-04-11 12:30] MED LIST changes: +LORTAB 5/3255 MG PO
[2022-04-11 14:59] LABS: BASO% 0.2 % (0-3); EOS% 1.2 % (0-8); HEMATOCRIT 31.2 % (39.0-50.0); IMMATURE GRANULOCYTES 0.2 % (0.0-5.0); LYMPH% 10.5 % (15-41); MEAN CORPUSCULAR HGB 31.7 pG CALC (26.0-32.0); MEAN CORPUSCULAR HGB CONC 32.1 g/dL CAL (32.0-36.0); MONO% 5.3 % (2-13); NEUT# 6.71 thou/uL (1.82-7.42); NEUT% 82.6 % (42-76); RED BLOOD COUNT 3.15 mill/uL (4.70-6.10)
[2022-04-11 15:00] LABS: URINE BILIRUBIN - DIPSTICK NEGATIVE (NEGATIVE); URINE BLOOD DIPSTICK SMALL (NEGATIVE); URINE COLOR YELLOW; URINE GLUCOSE - DIPSTICK NEGATIVE (NEGATIVE); URINE KETONE TRACE mg/dL (NEGATIVE); URINE PH 5.5 (4.5-8.0); URINE PROTEIN - DIPSTICK 100 mg/dL (NEG-TRACE); URINE SPECIFIC GRAVITY 1.025; URINE UROBILINOGEN - DIPSTICK 0.2 E.U./dL (0.2)
[2022-04-11 15:03] LABS: URINE BACTERIA MANY hpf; URINE LEUK ESTERASE MODERATE (NEGATIVE); URINE NITRITE - DIPSTICK NEGATIVE (Negative); URINE SQUAMOUS EPITHELIAL CELL FEW EPI/hpf (0-FEW); URINE WBC TNTC WBC/hpf (0-5)
[2022-04-11 15:14] LABS: ALKALINE PHOSPHATASE 102 u/l (38-126); BILIRUBIN, TOTAL 0.5 mg/dL (0.0-1.4); BUN 31 mg/dL (8-23); BUN/CREATININE RATIO 8 (12-20 (CALC)); CHLORIDE 106 mmol/l (95-108); CREATININE 3.7 mg/dL (0.7-1.3); GFR FOR AFR.AMER. 19 ML/MIN (>=60 (CALC)); GFR OTHER RACES 16 ML/MIN (>=60 (CALC)); LIPASE 31 u/l (23-300); POTASSIUM 4.3 mmol/l (3.5-5.1); SGOT/AST 18 u/l (19-48); SODIUM 136 mmol/l (137-146); TOTAL PROTEIN 7.3 g/dL (6.3-8.2)
[2022-04-11 15:16] LABS: ALBUMIN 3.7 g/dL (3.2-5.0); ANION GAP 12 (6-22 (CALC)); CARBON DIOXIDE 22 mmol/l (22-30)
[2022-04-11] MEDS ORDERED: ELIQUIS2.5 MG PO (21:35)
[2022-04-11] MEDS ORDERED: FUROSEMIDE20 MG PO (21:35)
[2022-04-11] MEDS ORDERED: GABAPENTIN100 MG PO (21:36)
[2022-04-11] MEDS ORDERED: NORVASC5 M1 PO (21:37)
[2022-04-11] MEDS ORDERED: FINASTERIDE5 MG PO (21:38)
[2022-04-11] MEDS ORDERED: VITAMIN D350000 UNIT PO (21:40)
[2022-04-11] MEDS ORDERED: HYDROCO/APAP1 TA9 PO (21:40)
[2022-04-11] MEDS ORDERED: TIVICAY50 MG PO (21:42)
[2022-04-11] MEDS ORDERED: MINIPRESS1 MG PO (21:42)
[2022-04-11] MEDS ORDERED: LIPITOR20 MG PO (21:45)
[2022-04-11] MEDS ORDERED: LIDOCAINE 5%5 % TOP (21:45)
[2022-04-12 00:16] VITALS: BP 140/56
[2022-04-12 04:48] VITALS: BP 159/41
[2022-04-12 07:44] VITALS: BP 160/79
[2022-04-12 11:43] VITALS: BP 155/51
[2022-04-12 14:10] VITALS: BP 156/60
[2022-04-12 19:00] VITALS: BP 150/68
[2022-04-13] VITALS (7 sets, daily range): BP systolic 119–175; BP diastolic 45–79
[2022-04-13 22:36] LABS: URINE BILIRUBIN - DIPSTICK NEGATIVE (NEGATIVE); URINE BLOOD DIPSTICK SMALL (NEGATIVE); URINE COLOR YELLOW; URINE GLUCOSE - DIPSTICK 100 mg/dL (NEGATIVE); URINE KETONE NEGATIVE (NEGATIVE); URINE LEUK ESTERASE MODERATE (NEGATIVE); URINE NITRITE - DIPSTICK NEGATIVE (Negative); URINE PH 5.5 (4.5-8.0); URINE PROTEIN - DIPSTICK 100 mg/dL (NEG-TRACE); URINE SPECIFIC GRAVITY 1.025; URINE UROBILINOGEN - DIPSTICK 0.2 E.U./dL (0.2)
[2022-04-13 22:38] LABS: URINE SQUAMOUS EPITHELIAL CELL FEW EPI/hpf (0-FEW); URINE WBC TNTC WBC/hpf (0-5)
[2022-04-14 04:21] VITALS: BP 135/67
[2022-04-14 06:43] VITALS: BP 150/61
[2022-04-14 09:14] LABS: CREATININE 3.9 mg/dL (0.7-1.3); POTASSIUM 4.4 mmol/l (3.5-5.1)
[2022-04-14 11:24] VITALS: BP 150/66
[2022-04-14 15:42] VITALS: BP 142/41
[2022-04-14 19:14] VITALS: BP 159/55
[2022-04-14 20:00] VITALS: BP 159/55
[2022-04-15 00:38] VITALS: BP 182/62
[2022-04-15 05:14] VITALS: BP 154/57
[2022-04-15 07:05] VITALS: BP 153/64
[2022-04-15 07:13] LABS: HEMATOCRIT 27.3 % (39.0-50.0); HEMOGLOBIN 8.8 g/dl (14.0-18.0); MEAN CORPUSCULAR HGB 32.2 pG CALC (26.0-32.0); MEAN CORPUSCULAR HGB CONC 32.2 g/dL CAL (32.0-36.0); RED BLOOD COUNT 2.73 mill/uL (4.70-6.10); RED CELL DISTRI WIDTH 16.1 % (11.5-15.5)
[2022-04-15 07:28] LABS: ALBUMIN 3.1 g/dL (3.2-5.0); BILIRUBIN, TOTAL 0.4 mg/dL (0.0-1.4); CREATININE 3.7 mg/dL (0.7-1.3); MAGNESIUM 2.1 mg/dL (1.6-2.3); POTASSIUM 4.7 mmol/l (3.5-5.1); TOTAL PROTEIN 6.3 g/dL (6.3-8.2)
[2022-04-15] MEDS ORDERED: CIPROFLOXACN500 MG PO (09:23)
== END 2022-04-15 11:07 | disposition home health service (06) ==
LOC: ED 12:30 → ED-I 18:30 → ED 18:50 → MS2 18:51
PROVIDERS: Family Medicine; Internal Medicine; ADMIT Internal Medicine; ATTEND Internal Medicine
PROC: 0T9B70Z Drainage of Bladder with Drainage Device, Via Natural or Artificial Opening (ICD-10-PCS; principal; 2022-04-13)
PROC: 0HDNXZZ Extraction of Left Foot Skin, External Approach (ICD-10-PCS; 2022-04-14)
DX: N39.0 Urinary tract infection, site not specified (principal); I13.0 Hypertensive heart and chronic kidney disease with heart failure and stage 1 through stage 4 chronic kidney disease, or unspecified chronic kidney disease; I50.9 Heart failure, unspecified; E11.22 Type 2 diabetes mellitus with diabetic chronic kidney disease; N18.4 Chronic kidney disease, stage 4 (severe); N40.1 Benign prostatic hyperplasia with lower urinary tract symptoms; R33.8 Other retention of urine; N17.9 Acute kidney failure, unspecified; E11.621 Type 2 diabetes mellitus with foot ulcer; L97.428 Non-pressure chronic ulcer of left heel and midfoot with other specified severity; M48.061 Spinal stenosis, lumbar region without neurogenic claudication; B96.5 Pseudomonas (aeruginosa) (mallei) (pseudomallei) as the cause of diseases classified elsewhere; Z21 Asymptomatic human immunodeficiency virus [HIV] infection status; Z86.73 Personal history of transient ischemic attack (TIA), and cerebral infarction without residual deficits; Z79.01 Long term (current) use of anticoagulants; Z74.01 Bed confinement status; Z20.822 Contact with and (suspected) exposure to COVID-19

== ENCOUNTER 2022-04-21 11:43 | Observation (INO) | payer MEDICARE, MEDICAID ==
[~2022-04-21] VITALS: Ht 172.7 cm; Wt 84.9 kg
[2022-04-21] VITALS (25 sets, daily range): BP systolic 102–157; BP diastolic 47–92
[~2022-04-21 11:43] MED LIST changes: +CIPROFLOXACN500 MG PO; +GABAPENTIN100 MG PO; +HYDROCO/APAP1 TA9 PO; +LIDOCAINE 5%5 % TOP; +LIPITOR20 MG PO; +NORVASC5 M1 PO
--- NOTE | 2022-04-21 11:50 | NUR ---
PATIENT TO ROOM 13 VIA EMS
[2022-04-21 12:31] LABS: BASO% 0.3 % (0-3); HEMATOCRIT 32.9 % (39.0-50.0); HEMOGLOBIN 10.4 g/dl (14.0-18.0); IMMATURE GRANULOCYTES 0.1 % (0.0-5.0); LYMPH% 14.6 % (15-41); MEAN CELL VOLUME 100.3 fL CALC (80.0-100.0); MEAN CORPUSCULAR HGB 31.7 pG CALC (26.0-32.0); MEAN CORPUSCULAR HGB CONC 31.6 g/dL CAL (32.0-36.0); MONO% 6.1 % (2-13); NEUT# 5.21 thou/uL (1.82-7.42); NEUT% 77.9 % (42-76); RED BLOOD COUNT 3.28 mill/uL (4.70-6.10); RED CELL DISTRI WIDTH 16.4 % (11.5-15.5)
[2022-04-21 12:46] LABS: ALBUMIN 3.6 g/dL (3.2-5.0); BILIRUBIN, TOTAL 0.4 mg/dL (0.2-1.3); CREATININE 3.1 mg/dL (0.7-1.3); POTASSIUM 4.7 mmol/l (3.5-5.1); TOTAL PROTEIN 7.2 g/dL (6.3-8.2)
--- NOTE | 2022-04-21 13:40 | NUR ---
Reassessment of patient completed. No distress noted.
--- NOTE | 2022-04-21 14:10 | NUR ---
DR NUNN BEDSIDE WITH PATIENT FOR POSSIBLE EJ, IV
[2022-04-21 15:18] LABS: URINE BILIRUBIN - DIPSTICK NEGATIVE (NEGATIVE); URINE BLOOD DIPSTICK MODERATE (NEGATIVE); URINE COLOR YELLOW; URINE GLUCOSE - DIPSTICK NEGATIVE (NEGATIVE); URINE KETONE NEGATIVE (NEGATIVE); URINE LEUK ESTERASE LARGE (NEGATIVE); URINE NITRITE - DIPSTICK NEGATIVE (Negative); URINE PROTEIN - DIPSTICK 100 mg/dL (NEG-TRACE); URINE UROBILINOGEN - DIPSTICK 0.2 E.U./dL (0.2)
[2022-04-21 15:23] LABS: URINE BACTERIA MANY hpf; URINE SQUAMOUS EPITHELIAL CELL FEW EPI/hpf (0-FEW); URINE WBC 50-100 WBC/hpf (0-5)
--- NOTE | 2022-04-21 16:18 | NUR ---
Reassessment of patient completed. No distress noted.
[2022-04-21] MEDS ORDERED: ZOFRAN4 MG/TAB PO (17:11)
[2022-04-21] MEDS ORDERED: CIPROFLOXACN500 MG PO (17:11)
--- NOTE | 2022-04-21 17:45 | NUR ---
TIME OUT COMPLETED FOR CENTRAL LINE PLACEMENT
--- NOTE | 2022-04-21 18:35 | NUR ---
DR NUNN CURRENTLY BEFDSIDE WITH PATIENT AND PATIENT'S SON TO DISCUSSED PPOC AND ANSWER QUESTIONS.
--- NOTE | 2022-04-21 19:04 | NUR ---
TRANSITION OF CARE REPORT TO GILDA RIOS
--- NOTE | 2022-04-21 20:08 | NUR ---
RECEIVED REPORT AND MED REC COMPLETED. PATIENT TAKEN TO ROOM 269 AND BEDSIDE REPORT GIVEN TO MARTHA.
--- NOTE | 2022-04-21 21:00 | NUR ---
PATIENT ADMITTED FROM ER VIA STRETCHER WITH ER STAFF IN ATTENDANCE-MAX ASSIST TO TRANFER TO THE BED. AWAKE ALERT AND ORIENTEDX3. PATIENT WITH JAY IN PLACE-#16 MALTESE THAT WAS CHANGED IN THE ER TODAY. URINE IS CLOUDY YELLOW URINE. TELE MONITOR IN PLACE-LAST READING WAS SR-75. PATIENT WITH TLC TO LEFT NECK -IJ-FLUSHED PER PROTOCOL. GOOD BLOOD RETURN FROM BLUE PORT. WHITE AND BROWN PORT FLUSH FREELY WITH NO BLOOD RETURN AT THIS TIME. SALINE LOCK TO LEFT AC INTACT AND HEALTHY WITH GOOD BLOOD RETURN. PATIENT WITH HX OF STROKE WITH SOME LEFT SIDE WEAKNESS NOTED. PATIENT STATES THAT HE LIVES WITH S/O AND IS MOSTLY W/C BOUND . STATES THAT HE JUST GOT A PAMELA LIFT AT HOME BUT NOBODY KNOWS HOW TO USE IT., PATIENT STATES THAT HE DOES HAVE [facility]. LUNGS ARE CLEAR BUT DIMINISHED. PATIENT WITH DRESSING TO LEFT HEEL-STATES THAT IT WAS JUST CHANGED BU WOUND CARE AND DOESN'T GET CHANGED DAILY. PATIENT WITH STAGE 2 TO BUTTOCKS. PHOTO TAKEN. PATIENT PROVIDED WITH COFFEE PER HIS REQUEST BUT DECLINES DINNER AT THIS TIME. ORIENTED TO ROOM AND SURROUNDINGS. INSTRUCTED ON USE OF NURSE CALL LIGHT SYSEM AND TV REMOTE. SAFETY PRECAUTIONS REINFORCED. CALL LIGHT IN REACH. WILL CONT TO MONITOR.
[2022-04-22] VITALS (7 sets, daily range): BP systolic 107–144; BP diastolic 43–70
--- NOTE | 2022-04-22 00:22 | NUR ---
PATIENT RESTING IN BED-PATIENT WITH TELE MONITOR IN PLACE-LAST READING WAS SR-70'S. JAY PATENT AND DRAINING CLOUDY YELLOW URINE-EMPTIED AND RECORDED. PATIENT WAS TURNED AND REPOSITIONED. PATIENT WITH STAGE 2 BREAKDOWN TO BUTTOCKS-PHOTO TAKEN. AREA WAS WASHED WITH SOAP AND WATER AND AQUACEL FOAM DRESSING WAS APPLIED. PATIENT WAS ALSO PROVIDED WITH PERICARE AND JAY CATH CARE WITH SOAP AND WATER. PATIENT TURNED AND POSITIONED ON LEFT SIDE. LEFT HEEL WITH DRESSING INTACT-STATES THAT HOME HEALTH COMES AND DOES WOUND CARE WEEKLY. LEFT FOOT ELEVATED ON PILLOW. PATIENT POSITIIONED WITH PILLOWS TO BACK FOR SUPPORT. EDUCATED PATIENT REGUARDING THE NEED FOR TURNING Q2H TO PROMOTE HEALTHY HEALING OF THESE PRESSURE ULCERS. VERBALIZES UNDERSTANDING. PATIENT WITH SALINE LOCK TO LAC INTACT AND LEFT NECK TLC INTACT. SAFETY PRECAUTIONS REINFORCED. CALL LIGHT IN REACH. WILL CONT TO MONITOR.
--- NOTE | 2022-04-22 04:00 | NUR ---
PATIENT POSITIONED ON LEFT SIDE AGAIN. EYES ARE CLOSED AND RESPS ARE EVEN AND UNLABORED. IV SITE TLC TO LEFT NECK INTACT AND APPEARS HEALTHY AT THIS TIME. SALINE LOCK TO LAC INTACT. TELE MONITOR IN PLACE. JAY CATH PATENT AND DRAINING SMALL AMT OF CLOUDY YELLOW URINE. AQUACEL FOAM DRESSING INTACT TO BUTTOCKS. CALL LIGHT IN REACH. WILL CONT TO MONITOR.
--- NOTE | 2022-04-22 08:00 | NUR ---
PT RESTING IN BED. ASSESSMENT COMPLETED. UPDATED PT IN CURRENT PLAN OF CARE. PT INIDCATED UNDERSTANDING. STATES NO PAIN. TELE MONITOR IN PLACE. CONTINOUS MONTIORING PER ED. FALL/SAFTEY PRECAUTION IN PLACE. CALL LIGHT WITHIN REACH
--- NOTE | 2022-04-22 12:00 | NUR ---
PT RESTING IN BED EATING LUNCH ASSISTED BY AIDE AT BEDSIDE. STATES NO PAIN AT THIS TIME. FALL/SAFTEY PRECAUTION IN PLACE, CALL LIGHT WITHIN REACH.
--- NOTE | 2022-04-22 16:00 | NUR ---
PT RESTING IN BED. STATES NO PAIN. BREATHING EVEN AND UNLABORED. NO DISTRESS NOTED. FALL/SAFTEY PRECAUTION IN PLACE. CALL LIGHT WITHIN REACH
--- NOTE | 2022-04-22 20:00 | NUR ---
PATIENT RESTING IN BED AT THIS TIME-AWAKE ALERT AND ORIENTEDX3. PATIENT WITH TELE MONITOR IN PLACE-LAST READING WAS SR-68 WITH 1ST DEGREE AVB. IV SITE TO LAC INTACT AND TLC TO LEFT IJ INTACT. JAY CATH PATENT AND DRAINING ALPHONSE URINE. PATIENT TURNED AND REPOSITIONED ON SIDE Q2H. DRESSING TO LEFT HEEL INTACT. BED ALARM IN PLACE FOR PATIENT SAFETY. CALL LIGHT IN REACH. WILL CONT TO MONITOR.
--- NOTE | 2022-04-22 22:00 | NUR ---
RESTING IN BED-REPOSITONED ON SIDE. GLUCOSE WAS 133-NO COVERAGE REQUIRED. MERRUM HUNG ORDERED. CALL LIGHT IN REACH. WILL CONT TO MONITOR.
[2022-04-23] VITALS (7 sets, daily range): BP systolic 108–162; BP diastolic 56–83
--- NOTE | 2022-04-23 00:46 | NUR ---
RESTING IN BED AT THIS TIME WITH EYES CLOSED. RESPS ARE EVEN AND UNLABORED. TELE MONITOR IN PLACE. CALL LIGHT IN REACH. WILL CONT TO MONITOR.
[2022-04-23 06:18] LABS: BASO% 0.6 % (0-3); EOS% 4.3 % (0-8); IMMATURE GRANULOCYTES 0.2 % (0.0-5.0); LYMPH% 31.7 % (15-41); MEAN CELL VOLUME 102.6 fL CALC (80.0-100.0); MEAN CORPUSCULAR HGB 32.8 pG CALC (26.0-32.0); MEAN CORPUSCULAR HGB CONC 31.9 g/dL CAL (32.0-36.0); MONO% 8.9 % (2-13); NEUT# 2.8 thou/uL (1.82-7.42); NEUT% 54.3 % (42-76); RED BLOOD COUNT 2.32 mill/uL (4.70-6.10); RED CELL DISTRI WIDTH 16.6 % (11.5-15.5)
[2022-04-23 06:28] LABS: HEMATOCRIT 23.8 % (39.0-50.0); HEMOGLOBIN 7.6 g/dl (14.0-18.0)
[2022-04-23 06:33] LABS: CREATININE 2.8 mg/dL (0.7-1.3); POTASSIUM 4.7 mmol/l (3.5-5.1); TOTAL PROTEIN 5.9 g/dL (6.3-8.2)
[2022-04-23 06:34] LABS: ALBUMIN 2.8 g/dL (3.2-5.0); BILIRUBIN, TOTAL 0.2 mg/dL (0.2-1.3)
--- NOTE | 2022-04-23 07:23 | NUR ---
SHFIT CHANGE REPORT, PT AWAKE ALERT AND ORIENTED RESTING IN BED, NO C/O PAIN/DISCOMFORT,TELE MONITOR IN PLACE, JAY CATHETER IN PLACE WITH YELLOW URINE, CALL HERNANDEZ IN REACH AND BED LOCKED IN LOWEST POSITION.
[2022-04-23 12:13] LABS: HEMATOCRIT 26.9 % (39.0-50.0); HEMOGLOBIN 8.5 g/dl (14.0-18.0)
--- NOTE | 2022-04-23 12:15 | NUR ---
SIGNIFICANT OTHER BROUGHT IN REQUESTED MEDS FOR PT IN BOTTLE WITH UNCLEAR WRITINGS, WHEN QUESTIONED ABOUT IT SHE REPORTED SHE TRANSFERRED THE PILLS FROM THE NEW BOTTLE TO THE OLD ONE SHE BROUGT THEM IN. MEDS WAS RETURNED TO HER AND SHE WAS ADVISED NEVER TO TRANSFER MDS FROM NEW BOTTLES/CONTAINERS TO OLD ONES. PT IS ALERT AND ORIENTED HAVING MEAL AFTER HE WAS SET UP FOR IT. EARLIER THIS AM PT REQUESTED TO BE FED AND STAFF WAS FEEDING HIM, NURSE ADVISED PT WE DO NOT DEPRIVE PTS OF THEIR INDEPENDENCE IN WHATERER THEY CAN DO FOR THEMSELVES AND ENCOURAGED HIM TO FEED HIMSELF WHICH IS WHAT HE IS DOING AT THIS TIME IN A MOST EFFECTIVE MANNER, WILL CONTINUE TO MONITOR.
--- NOTE | 2022-04-23 18:29 | NUR ---
CONTACTED [facility] IN ORDER TO ORDER AN AIR MATTRESS (P500) FOR THIS PATIENT. I SPOKE WITH CJ AT 1620 HRS. CONFIRMATION #[id number]
--- NOTE | 2022-04-23 20:00 | NUR ---
PATIENT IS LAYING IN BED WATCHING TV, ALERT AND ORIENTED X3, ABLE TO MAKE NEEDS KNOWN, NO S/S OF DISTRESS, CALL LIGHT WITHIN REACH
--- NOTE | 2022-04-24 | NUR ---
PATIENT RESTING IN BED, NO S/S OF DISTRESS
--- NOTE | 2022-04-24 04:00 | NUR ---
PATIENT RESTING IN BED, NO S/S OF DISTRESS, ABLE TO MAKE NEEDS KNOWN, CALL LIGHT WITHIN REACH
[2022-04-24 05:23] VITALS: BP 146/76
[2022-04-24 06:31] LABS: BASO% 0.4 % (0-3); EOS% 4.1 % (0-8); HEMATOCRIT 24.7 % (39.0-50.0); IMMATURE GRANULOCYTES 0.4 % (0.0-5.0); LYMPH% 30.4 % (15-41); MEAN CORPUSCULAR HGB 32.4 pG CALC (26.0-32.0); MEAN CORPUSCULAR HGB CONC 32.4 g/dL CAL (32.0-36.0); NEUT# 3.18 thou/uL (1.82-7.42); NEUT% 56.7 % (42-76); RED BLOOD COUNT 2.47 mill/uL (4.70-6.10)
[2022-04-24 06:42] LABS: ALBUMIN 2.7 g/dL (3.2-5.0); CREATININE 2.7 mg/dL (0.7-1.3); POTASSIUM 4.9 mmol/l (3.5-5.1); TOTAL PROTEIN 5.7 g/dL (6.3-8.2)
[2022-04-24 06:46] LABS: BILIRUBIN, TOTAL 0.1 mg/dL (0.2-1.3)
[2022-04-24 07:00] VITALS: BP 140/62
--- NOTE | 2022-04-24 08:00 | NUR ---
RECIEVED REPORT FROM NIGHTSHIFT NURSE. PT NOTED LAYING IN BED. PT IS A/OX3, DENIES ANY PAIN AT THIS TIME. JAY CATHTER PRESENT WITH ADEQUATE URINE OUTPUT. DRESSING ON LEFT ANKLE AND TWO ON ALLYSON BUTTOCKS NOTED. CALL LIGHT WIHTIN REACH AND SAFETY PRECAUTIONS IN PLACE.
[2022-04-24 11:00] VITALS: BP 139/98
[2022-04-24] MEDS ORDERED: HYDROCO/APAP1 TA9 PO (11:42)
[2022-04-24] MEDS ORDERED: AMOXICILLIN500 M2 PO (11:46)
--- NOTE | 2022-04-24 12:00 | NUR ---
PT SITTING UP IN BED EATING LUNCH. SPOKE WITH PT SON ABOUT DISCHARGE PLAN AND MEDICATIONS. PT DENIES ANY PAIN AT THIS TIME. CALL LIGHT WITHIN REACH AND SAFETY PRECAUTIONS IN PLACE.
[2022-04-24 14:45] VITALS: BP 124/57
--- NOTE | 2022-04-24 16:10 | NUR ---
PT LAYING IN BED, DENIES ANY PAIN AT THIS TIME. AT BEDSIDE. ASSISTED WITH DRESSING WOUND ON LEFT ANKLE AND PLACED BANDAGE OVER WOUNDS ON ALLYSON COCCYX AREA. AGA LIGHT WITHIN REACH AND SAFETY PRECAUTIONS IN PLACE.
== END 2022-04-24 18:35 ==
LOC: ED 11:43 → ED-I 18:00 → ED 18:26 → MS2 18:27
PROVIDERS: Family Medicine; Nurse Practitioner Family; ADMIT Internal Medicine; ATTEND Internal Medicine
PROC: 05HY33Z Insertion of Infusion Device into Upper Vein, Percutaneous Approach (ICD-10-PCS; principal; 2022-04-21)
PROC: 0T2BX0Z Change Drainage Device in Bladder, External Approach (ICD-10-PCS; 2022-04-21)
DX: T83.511A Infection and inflammatory reaction due to indwelling urethral catheter, initial encounter (principal); N39.0 Urinary tract infection, site not specified; E11.622 Type 2 diabetes mellitus with other skin ulcer; L97.329 Non-pressure chronic ulcer of left ankle with unspecified severity; L89.152 Pressure ulcer of sacral region, stage 2; I12.9 Hypertensive chronic kidney disease with stage 1 through stage 4 chronic kidney disease, or unspecified chronic kidney disease; E11.22 Type 2 diabetes mellitus with diabetic chronic kidney disease; N18.4 Chronic kidney disease, stage 4 (severe); R33.9 Retention of urine, unspecified; I25.10 Atherosclerotic heart disease of native coronary artery without angina pectoris; I48.91 Unspecified atrial fibrillation; B95.2 Enterococcus as the cause of diseases classified elsewhere; Y84.6 Urinary catheterization as the cause of abnormal reaction of the patient, or of later complication, without mention of misadventure at the time of the procedure; Z21 Asymptomatic human immunodeficiency virus [HIV] infection status; Z86.73 Personal history of transient ischemic attack (TIA), and cerebral infarction without residual deficits; Z95.5 Presence of coronary angioplasty implant and graft; Z79.01 Long term (current) use of anticoagulants; Z79.899 Other long term (current) drug therapy; Z20.822 Contact with and (suspected) exposure to COVID-19
CPT/HCPCS: J2185

== ENCOUNTER 2022-07-08 14:32 | Emergency (ER) | payer MEDICARE, MEDICAID ==
[2022-07-08] VITALS (8 sets, daily range): BP systolic 110–133; BP diastolic 47–66
[~2022-07-08] VITALS: Ht 172.7 cm; Wt 90.0 kg
[~2022-07-08 14:32] MED LIST changes: +AMOXICILLIN500 M2 PO
[2022-07-08 16:55] LABS: BASO% 0.3 % (0-3); EOS% 1.5 % (0-8); HEMOGLOBIN 10.6 g/dl (14.0-18.0); IMMATURE GRANULOCYTES 0.1 % (0.0-5.0); LYMPH% 11.2 % (15-41); MEAN CORPUSCULAR HGB 33.4 pG CALC (26.0-32.0); MEAN CORPUSCULAR HGB CONC 33.1 g/dL CAL (32.0-36.0); NEUT# 5.97 thou/uL (1.82-7.42); NEUT% 80.9 % (42-76); RED BLOOD COUNT 3.17 mill/uL (4.70-6.10); RED CELL DISTRI WIDTH 14.3 % (11.5-15.5)
[2022-07-08 16:56] LABS: MEAN CELL VOLUME 100.9 fL CALC (80.0-100.0)
[2022-07-08 17:10] LABS: ALBUMIN 3.4 g/dL (3.2-5.0); ALKALINE PHOSPHATASE 66 u/l (38-126); ANION GAP 11 (6-22 (CALC)); BILIRUBIN, TOTAL 0.6 mg/dL (0.2-1.3); BUN 47 mg/dL (8-23); BUN/CREATININE RATIO 12 (12-20 (CALC)); CARBON DIOXIDE 23 mmol/l (22-30); CHLORIDE 105 mmol/l (95-108); CREATININE 3.9 mg/dL (0.7-1.3); GFR FOR AFR.AMER. 18 ML/MIN (>=60 (CALC)); GFR OTHER RACES 15 ML/MIN (>=60 (CALC)); POTASSIUM 3.8 mmol/l (3.5-5.1); SGOT/AST 18 u/l (19-48); SODIUM 135 mmol/l (137-146); TOTAL PROTEIN 6.7 g/dL (6.3-8.2)
== END 2022-07-08 18:41 | disposition home or self-care (01) ==
LOC: ED 14:32
PROVIDERS: Family Medicine
DX: E86.0 Dehydration (principal); I12.9 Hypertensive chronic kidney disease with stage 1 through stage 4 chronic kidney disease, or unspecified chronic kidney disease; E11.22 Type 2 diabetes mellitus with diabetic chronic kidney disease; N18.9 Chronic kidney disease, unspecified; I25.10 Atherosclerotic heart disease of native coronary artery without angina pectoris; Z98.61 Coronary angioplasty status; Z86.73 Personal history of transient ischemic attack (TIA), and cerebral infarction without residual deficits; B20 Human immunodeficiency virus [HIV] disease; Z20.822 Contact with and (suspected) exposure to COVID-19; N18.4 Chronic kidney disease, stage 4 (severe); D63.1 Anemia in chronic kidney disease; Z53.9 Procedure and treatment not carried out, unspecified reason; M86.18 Other acute osteomyelitis, other site